=== PATIENT | male | born 1955 | race Caucasian/White ===

== ENCOUNTER → 2017-05-08 | Outpatient (CLI) | payer OTHER | LOC: COL.RAD 09:51 | DX: M25.552 Pain in left hip (principal) | CPT/HCPCS: J3301; Q9967 ==

== ENCOUNTER → 2017-09-10 | Outpatient (CLI) | payer OTHER ==
[~2017-09-10] MED LIST: 00186-0370-20 IH; ASPIRIN 81M81 MG/TA2 PO; LYRICA 50MG CAP50 MG PO; PRAVACHOL80 MG PO; PRINIVIL10 MG PO; PROAIR HFA0.09 MG/AC IH; PROSCAR 5MG5 MG PO; SINEQUAN75 MG PO; ZESTRIL 10MG10 MG PO
== END ==
LOC: COL.RAD 10:35
DX: M16.12 Unilateral primary osteoarthritis, left hip (principal)
CPT/HCPCS: J3301; Q9967

== ENCOUNTER → 2019-03-20 | Outpatient (CLI) | payer OTHER | LOC: COL.RAD 03-14 09:00 | DX: M16.12 Unilateral primary osteoarthritis, left hip (principal) | CPT/HCPCS: J3301; Q9967 ==